=== PATIENT | female | born 1985 ===

== ENCOUNTER 2021-02-25 13:43 | Inpatient (IN) | payer BC ==
[2021-02-25] MEDS ORDERED: Oxytocin/0.9 % Sodium Chloride 30 UNIT/500 ML BAG IV SCH ×2 (14:02→14:15)
[2021-02-25] MEDS ORDERED: Carboprost Tromethamine 250 MCG/1 ML Amp IM PRN ×2 (14:02)
[2021-02-25] MEDS ORDERED: Sodium Chloride 0.9% 2.5 ML Syringe FLUSH PRN (14:02)
[2021-02-25] MEDS ORDERED: Butorphanol 1 MG/ML SDV IVPUSH PRN ×2 (14:02)
[2021-02-25] MEDS ORDERED: Misoprostol 200 MCG Tab PO PRN ×2 (14:02)
[2021-02-25] MEDS ORDERED: Sodium Chloride 0.9% 20 ML SDV IV PRN (14:02)
[2021-02-25] MEDS ORDERED: Tranexamic Acid 1,000 MG in Sodium Chloride 0.9% 100 ML IV PRN ×2 (14:02)
[2021-02-25] MEDS ORDERED: Sodium Chloride 0.9% 10 ML Syringe FLUSH PRN (14:02)
[2021-02-25] MEDS ORDERED: Water For Irrigation,Sterile 1,000 ML Container IRR PRN ×2 (14:02)
[2021-02-25] MEDS ORDERED: Ampicillin 2 GM in Sodium Chloride 0.9% 100 ML IV ONE ×3 (14:02→14:30)
[2021-02-25] MEDS ORDERED: Nalbuphine 10 MG/1 ML Vial IVPUSH PRN ×2 (14:02)
[2021-02-25] MEDS ORDERED: Methylergonovine 0.2 MG/1 ML Amp IM PRN ×2 (14:02)
[2021-02-25] MEDS ORDERED: Lactated Ringers 1,000 ML IV SCH ×2 (14:02→14:15)
[2021-02-25] MEDS ORDERED: Lidocaine 1% 50 ML MDV INJECT PRN ×2 (14:02)
[2021-02-25] MEDS ORDERED: Ampicillin 2 GM Vial ONE (14:17)
[2021-02-25] MEDS ORDERED: Sodium Chloride 0.9% 100 ML ONE (14:23)
--- NOTE | 2021-02-25 14:51 | PCM.LDHP ---
L&D History of Present Illness - General Date of Service: 02/25/21 Admit Problem/Dx: Patient Status Order with Admit Dx/Problem 02/25/21 14:02 Patient Status [ADT] Routine Admission Diagnosis/Problem Admission Diagnosis/Problem Source of Information: Patient History Limitations: Reports: No Limitations - History of Present Illness Introduction:: 35 year old female at 38w0d (EDC 03/11/2021 by LMP c/w 1st trimester US) presents to labor and delivery with spontaneous rupture of membranes at approximately 1315 with clear fluid noted. has been uncomplicated. Reports good movement. Denies vaginal bleeding. - Related Data Allergies/Adverse Reactions: Allergies Allergy/AdvReac Type Severity Reaction Status Date / Time No Known Allergies Allergy Verified 02/25/21 06:06 Home Medications: Home Meds Pnv No.95/Ferrous Fum/Folic AC [ Tablet] 1 tab PO DAILY 02/25/21 [History] H&P Review of Systems - Review of Systems: Review Of Systems: See Below General: Reports: No Symptoms HEENT: Reports: No Symptoms Pulmonary: Reports: No Symptoms Cardiovascular: Reports: No Symptoms Gastrointestinal: Reports: Abdominal Pain Genitourinary: Reports: No Symptoms Musculoskeletal: Reports: Back Pain Skin: Reports: No Symptoms Psychiatric: Reports: No Symptoms Neurological: Reports: No Symptoms Hematologic/Lymphatic: Reports: No Symptoms L&D Exam - Exam Exam: See Below - Vital Signs Weight: 179 lb - OB Specific Contraction Frequency (min): 2-3 Contraction Intensity: Moderate Movement: Active Heart Tones: Present Heart Tones per Min: 130 Heart Rate (FHR) Variability: Moderate (6-25 bpm) Presentation: Vertex Estimated Weight: 3500 - Wick Score Wick Score Cervix Position: Anterior Wick Score Consistency: Soft Wick Score Effacement: >80% Wick Score Dilation: > 5 cm Wick Score 's Station: +1, +2 Wick Score Total: 13 - Exam General: Alert Lungs: Normal Respiratory Effort Cardiovascular: Regular Rate GI/Abdominal Exam: Soft, Non-Tender Extremities: Normal Inspection Skin: Warm, Dry, Intact Psychiatric: Normal Mood - Patient Data Result Diagrams: 02/25/21 14:00 Problem List Initiated/Reviewed/Updated: Yes Orders Last 24hrs: Active Orders 24 hr Category Date Time Status Patient Status [ADT] Routine ADT 02/25/21 14:02 Active Heart Tones [RC] CONTINUOUS Care 02/25/21 14:02 Active Non Stress Test [RC] PER UNIT ROUTINE Care 02/25/21 14:02 Active May Shower [RC] ASDIRECTED Care 02/25/21 14:02 Active Notify Provider [RC] PRN Care 02/25/21 14:02 Active Up ad Shanice [RC] ASDIRECTED Care 02/25/21 14:02 Active Vaginal Exam [RC] PRN Care 02/25/21 14:02 Active Vital Signs [RC] PER UNIT ROUTINE Care 02/25/21 14:02 Active CBC W/O DIFF,HEMOGRAM [HEME] Routine Lab 02/25/21 14:00 Ordered CORONAVIRUS COVID-19 JOSE [MOLEC] Routine Lab 02/25/21 14:30 Ordered RPR (SYPHILIS SERO) W/ RFLX [REF] Routine Lab 02/25/21 14:00 Ordered TYPE AND SCREEN [BBK] Routine Lab 02/25/21 14:00 Ordered Ampicillin 2 gm Med 02/25/21 14:30 Active Sodium Chloride 0.9% [Normal Saline AdvBag] 100 ml IV ONETIME Butorphanol [Stadol] Med 02/25/21 14:02 Active 1 mg IVPUSH Q1H PRN Carboprost Tromethamine [Hemabate DS] Med 02/25/21 14:02 Active 250 mcg IM ASDIRECTED PRN Lactated Ringers [Ringers, Lactated] 1,000 ml Med 02/25/21 14:15 Active IV ASDIRECTED Lidocaine 1% [Xylocaine 1%] Med 02/25/21 14:02 Active 50 ml INJECT ONETIME PRN Methylergonovine [Methergine] Med 02/25/21 14:02 Active 0.2 mg IM ASDIRECTED PRN Nalbuphine [Nubain] Med 02/25/21 14:02 Active 10 mg IVPUSH Q1H PRN Oxytocin/0.9 % Sodium Chloride [Oxytocin 30 Unit in NS Med 02/25/21 14:15 Active 0.9% 500 ML Premix] 30 unit in 500 ml IV TITRATE Sodium Chloride 0.9% [Normal Saline] Med 02/25/21 14:02 Active 10 ml IV ASDIRECTED PRN Sodium Chloride 0.9% [Saline Flush] Med 02/25/21 14:02 Active 10 ml FLUSH ASDIRECTED PRN Sodium Chloride 0.9% [Saline Flush] Med 02/25/21 14:02 Active 2.5 ml FLUSH ASDIRECTED PRN Tranexamic Acid [Cyklokapron] 1,000 mg Med 02/25/21 14:02 Active Sodium Chloride 0.9% [Normal Saline AdvBag] 100 ml IV ONETIME Water For Irrigation,Sterile [Sterile Water for Med 02/25/21 14:02 Active Irrigation] 1,000 ml IRR ASDIRECTED PRN miSOPROStoL [Cytotec] Med 02/25/21 14:02 Active 200 mcg PO ONETIME PRN Scalp Electrode [WOMSER] Per Unit Routine Oth 02/25/21 14:02 Ordered Peripheral IV Insertion Adult [OM.PC] Routine Oth 02/25/21 14:02 Ordered Resuscitation Status Routine Resus Stat 02/25/21 14:02 Ordered Medication Orders Butorphanol Tartrate (Butorphanol 1 Mg/Ml Sdv) 1 mg IVPUSH Q1H PRN PRN Reason: Pain (severe 7-10) Carboprost Tromethamine (Carboprost Tromethamine 250 Mcg/1 Ml Amp) 250 mcg IM ASDIRECTED PRN PRN Reason: Post Hemorrhage Oxytocin/Sodium Chloride (Oxytocin 30 Unit In Ns 0.9% 500 Ml Premix) 30 unit in 500 mls @ 500 mls/hr IV TITRATE PAO Tranexamic Acid 1,000 mg/ (Sodium Chloride) 110 mls @ 660 mls/hr IV ONETIME PRN PRN Reason: Bleeding Ampicillin Sodium 2 gm/ Sodium (Chloride) 100 mls @ 200 mls/hr IV ONETIME ONE Stop: 02/25/21 14:59 Lactated Ringer's (Ringers, Lactated) 1,000 mls @ 150 mls/hr IV ASDIRECTED PAO Lidocaine HCl (Lidocaine 1% 50 Ml Mdv) 50 ml INJECT ONETIME PRN PRN Reason: Laceration repair Methylergonovine Maleate (Methylergonovine 0.2 Mg/1 Ml Amp) 0.2 mg IM ASDIRECTED PRN PRN Reason: Post Hemorrhage Misoprostol (Misoprostol 200 Mcg Tab) 200 mcg PO ONETIME PRN PRN Reason: Post Hemorrhage Nalbuphine HCl (Nalbuphine 10 Mg/1 Ml Vial) 10 mg IVPUSH Q1H PRN PRN Reason: Pain (severe 7-10) Sodium Chloride (Sodium Chloride 0.9% 10 Ml Syringe) 10 ml FLUSH ASDIRECTED PRN PRN Reason: Keep Vein Open Sodium Chloride (Sodium Chloride 0.9% 2.5 Ml Syringe) 2.5 ml FLUSH ASDIRECTED PRN PRN Reason: Keep Vein Open Sodium Chloride (Sodium Chloride 0.9% 20 Ml Sdv) 10 ml IV ASDIRECTED PRN PRN Reason: IV Use Sterile Water (Water For Irrigation,Sterile 1,000 Ml Container) 1,000 ml IRR ASDIRECTED PRN PRN Reason: delivery Assessment/Plan Comment:: 35 year old female at 38w0d (EDC 03/11/2021 by LMP c/w 1st trimester US) with spontaneous rupture of membranes * Admit to labor and delivery * Rh positive, rubella immune * GBS positive, IV ampicillin for prophylaxis * Epidural PRN pain management Dispo: stable. Proceed with expectant management of labor.
[2021-02-25] MEDS ORDERED: ePHEDrine 50 MG/ML SDV IVPUSH PRN ×2 (15:45)
[2021-02-25] MEDS ORDERED: Ropivacaine 0.2% 2MG/ML 200 ML Bag EPIDUR SCH (15:45)
[2021-02-25] MEDS ORDERED: Morphine 2 MG/ML SYRINGE ONE (17:02)
[2021-02-25] MEDS ORDERED: Morphine 2 MG/ML SYRINGE IVPUSH ONE (17:02)
[2021-02-25] MEDS ORDERED: Acetaminophen 500 MG Tab PO PRN ×2 (17:13)
[2021-02-25] MEDS ORDERED: Bisacodyl 10 MG Supp RECTAL PRN (17:13)
[2021-02-25] MEDS ORDERED: oxyCODONE 5 MG Tab PO PRN (17:13)
[2021-02-25] MEDS ORDERED: Benzocaine/Menthol 20%-0.5% Spray 78 GM Cannister TOP PRN (17:13)
[2021-02-25] MEDS ORDERED: Ibuprofen 400 MG Tab PO PRN (17:13)
[2021-02-25] MEDS ORDERED: Witch Hazel Medicated Pads 40/Jar TOP PRN (17:13)
[2021-02-25] MEDS ORDERED: Docusate Sodium 100 MG Cap PO PRN (17:13)
[2021-02-25] MEDS ORDERED: Lanolin 100% Cream 7 GM Tube TOP PRN (17:13)
--- NOTE | 2021-02-25 17:20 | PCM.DEL ---
L & D Note - General Info Date of Service: 02/25/21 Mother's Due Date: 03/11/21 - Delivery Note Labor: Spontaneous Delivery Outcome: Livebirth Infant Delivery Method: Spontaneous Vaginal Delivery-Single Delivery Mode: Spontaneous Presentation: Vertex Nuchal Cord: None Anesthesia Type: None Amniotic Fluid Description: Clear Episiotomy Type: None Laceration: None Placenta: Intact, Spontaneous Cord: 3 Vessels Estimated Blood Loss: 150 Resuscitation Needed: No [place]: Bulb Syringe, Stimulated Provider: Sugey Dolan Score 1 min: 8 Score 5 min: 9 Delivery Comments (Free Text/Narrative):: Dictation #[id number] - General Info Date of Service: 02/25/21 Admission Dx/Problem (Free Text): Patient Status Order with Admit Dx/Problem 02/25/21 14:02 Patient Status [ADT] Routine Admission Diagnosis/Problem Admission Diagnosis/Problem - Patient Data Weight - Most Recent: 179 lb Lab Results Last 24 Hours: Laboratory Results - last 24 hr 02/25/21 02/25/21 02/25/21 Range/Units 14:00 14:00 14:30 WBC 9.19 (4.0-11.0) K/uL RBC 4.55 (4.30-5.90) M/uL Hgb 13.0 (12.0-16.0) g/dL Hct 37.4 (36.0-46.0) % MCV 82.2 (80.0-98.0) fL MCH 28.6 (27.0-32.0) pg MCHC 34.8 (31.0-37.0) g/dL RDW Std Deviation 39.7 (28.0-62.0) fl RDW Coeff of Freddy 13 (11.0-15.0) % Plt Count 238 (150-400) K/uL MPV 9.20 (7.40-12.00) fL Nucleated RBC % 0.0 /100WBC Nucleated RBCs # 0 K/uL SARS-CoV-2 RNA (JOSE) NEGATIVE (NEGATIVE) Blood Type O POSITIVE Antibody Screen NEGATIVE Med Orders - Current: Current Medications Butorphanol Tartrate (Butorphanol 1 Mg/Ml Sdv) 1 mg IVPUSH Q1H PRN PRN Reason: Pain (severe 7-10) Carboprost Tromethamine (Carboprost Tromethamine 250 Mcg/1 Ml Amp) 250 mcg IM ASDIRECTED PRN PRN Reason: Post Hemorrhage Ephedrine Sulfate (Ephedrine 50 Mg/Ml Sdv) 10 mg IVPUSH Q5M PRN PRN Reason: Hypotension Ephedrine Sulfate (Ephedrine 50 Mg/Ml Sdv) 10 mg IVPUSH Q1M PRN PRN Reason: Hypotension Ampicillin Sodium 1 gm/ Sodium (Chloride) 50 mls @ 100 mls/hr IV Q4H PAO Lactated Ringer's (Ringers, Lactated) 1,000 mls @ 150 mls/hr IV ASDIRECTED PAO Oxytocin/Sodium Chloride (Oxytocin 30 Unit In Ns 0.9% 500 Ml Premix) 30 unit in 500 mls @ 999 mls/hr IV TITRATE PAO Tranexamic Acid 1,000 mg/ (Sodium Chloride) 110 mls @ 660 mls/hr IV ONETIME PRN PRN Reason: Bleeding Lidocaine HCl (Lidocaine 1% 50 Ml Mdv) 50 ml INJECT ONETIME PRN PRN Reason: Laceration repair Methylergonovine Maleate (Methylergonovine 0.2 Mg/1 Ml Amp) 0.2 mg IM ASDIRECTED PRN PRN Reason: Post Hemorrhage Miscellaneous Medication (Phenylephrine Hcl In 0.9% Nacl 1 Mg/10 Ml Syringe) 0.1 mg IVPUSH Q1M PRN PRN Reason: Hypotension Misoprostol (Misoprostol 200 Mcg Tab) 200 mcg PO ONETIME PRN PRN Reason: Post Hemorrhage Nalbuphine HCl (Nalbuphine 10 Mg/1 Ml Vial) 10 mg IVPUSH Q1H PRN PRN Reason: Pain (severe 7-10) Ropivacaine (Ropivacaine 0.2% 2mg/Ml 200 Ml Bag) 400 mg EPIDUR ASDIRECTED PAO Sterile Water (Water For Irrigation,Sterile 1,000 Ml Container) 1,000 ml IRR ASDIRECTED PRN PRN Reason: delivery Discontinued Medications Ampicillin Sodium (Ampicillin 2 Gm Vial) Confirm Administered Dose 2 gm .ROUTE .STK-MED ONE Stop: 02/25/21 14:18 Sodium Chloride (Normal Saline Advbag) Confirm Administered Dose 100 mls @ as directed .ROUTE .STK-MED ONE Stop: 02/25/21 14:24 Ampicillin Sodium 2 gm/ Sodium (Chloride) 100 mls @ 200 mls/hr IV ONETIME ONE Stop: 02/25/21 14:55 Morphine Sulfate (Morphine 2 Mg/Ml Syringe) Confirm Administered Dose 2 mg .ROUTE .STK-MED ONE Stop: 02/25/21 17:03 Nalbuphine HCl (Nalbuphine 10 Mg/1 Ml Vial) 10 mg IVPUSH Q1H PRN PRN Reason: Pain (severe 7-10) Last Admin: 02/25/21 15:52 Dose: 10 mg Documented by: - Problem List Review Problem List Initiated/Reviewed/Updated: Yes - My Orders Last 24 Hours: My Active Orders 02/25/21 14:00 RPR (SYPHILIS SERO) W/ RFLX [REF] Routine 02/25/21 14:02 Patient Status [ADT] Routine Heart Tones [RC] CONTINUOUS Non Stress Test [RC] PER UNIT ROUTINE May Shower [RC] ASDIRECTED Notify Provider [RC] PRN Up ad Shanice [RC] ASDIRECTED Vaginal Exam [RC] PRN Vital Signs [RC] PER UNIT ROUTINE CBC W/O DIFF,HEMOGRAM [HEME] Routine CORONAVIRUS COVID-19 JOSE [MOLEC] Urgent RPR (SYPHILIS SERO) W/ RFLX [REF] Routine Butorphanol [Stadol] 1 mg IVPUSH Q1H PRN Carboprost Tromethamine [Hemabate DS] 250 mcg IM ASDIRECTED PRN Lactated Ringers [Ringers, Lactated] 1,000 ml IV ASDIRECTED Lidocaine 1% [Xylocaine 1%] 50 ml INJECT ONETIME PRN Methylergonovine [Methergine] 0.2 mg IM ASDIRECTED PRN Nalbuphine [Nubain] 10 mg IVPUSH Q1H PRN Oxytocin/0.9 % Sodium Chloride [Oxytocin 30 Unit in NS 0.9% 500 ML Premix] 30 unit in 500 ml IV TITRATE Tranexamic Acid [Cyklokapron] 1,000 mg Sodium Chloride 0.9% [Normal Saline] 100 ml IV ONETIME Water For Irrigation,Sterile [Sterile Water for Irrigation] 1,000 ml IRR ASDIRECTED PRN miSOPROStoL [Cytotec] 200 mcg PO ONETIME PRN Scalp Electrode [WOMSER] Per Unit Routine Peripheral IV Insertion Adult [OM.PC] Routine 02/25/21 16:21 Resuscitation Status Routine 02/25/21 17:13 Patient Status [ADT] Routine May Shower [RC] ASDIRECTED Up ad Shanice [RC] ASDIRECTED Vital Signs [RC] PER UNIT ROUTINE Acetaminophen [Tylenol Extra Strength] 1,000 mg PO Q4H PRN Acetaminophen [Tylenol Extra Strength] 500 mg PO Q4H PRN Benzocaine/Menthol [Dermoplast Pain Relief 20%-0.5% [place]] 78 gm TOP ASDIRECTED PRN Docusate Sodium [Colace] 100 mg PO Q12H PRN Ibuprofen [Motrin] 400 mg PO Q4H PRN Ibuprofen [Motrin] 800 mg PO Q6H PRN Lanolin [Lansinoh HPA] See Dose Instructions TOP ASDIRECTED PRN bisacodyL [Dulcolax] 10 mg RECTAL ONETIME PRN oxyCODONE 5 mg PO Q2H PRN witch Ramy [Tucks] 1 pad TOP ASDIRECTED PRN Assess Lochia [WOMSER] Per Unit Routine Assess Uterine Involution [WOMSER] Per Unit Routine Peripheral IV Discontinue [OM.PC] Routine 02/25/21 20:30 Ampicillin 1 gm Sodium Chloride 0.9% [Normal Saline AdvBag] 50 ml IV Q4H 02/26/21 05:11 HEMOGLOBIN/HEMATOCRIT,HH [HEME] Timed 02/26/21 Breakfast Regular Diet [DIET] - Assessment Assessment:: 35 year old female s/p at 38w0d - Plan Plan:: Routine cares * Rh positive, rubella immune * GBS positive, received 1 dose IV ampicillin prior to delivery * PO pain medication PRN * Regular diet as tolerated * Encourage ambulation and fluid intake when able * , nursing assistance as needed Dispo: stable. Admit to floor. Anticipate routine course.
[2021-02-25] MEDS ORDERED: Ampicillin 1 GM in Sodium Chloride 0.9% 50 ML IV SCH (20:30)
--- NOTE | 2021-02-25 23:17 | OR ---
SURGEON: CHUCKY NESBITT MD DATE OF PROCEDURE: 02/25/2021 PREOPERATIVE DIAGNOSES: 1. Wahl intrauterine gestation at 38 weeks and 0 days. 2. Group B streptococcus positive. POSTOPERATIVE DIAGNOSES: 1. Wahl intrauterine gestation at 38 weeks and 0 days. 2. Group B streptococcus positive. PROCEDURE PERFORMED: Normal spontaneous vaginal delivery. PRIMARY SURGEON: Chucky Nesbitt MD ANESTHESIA: None. COMPLICATIONS: None known. ESTIMATED BLOOD LOSS: 150 mL. FINDINGS: Viable normal-appearing female in cephalic presentation. scores of 8 and 9. weight not yet available at this time. Clear amniotic fluid. Intact perineum. INDICATION FOR THE PROCEDURE: Patient is a 35-year-old 6, para 3-0-2-3, who presented to Labor and Delivery on the afternoon of 02/25/2021 at 38 weeks and 0 days' gestation with spontaneous rupture of membranes which occurred at approximately 1315. Clear fluid was noted. The patient noted to be approximately 4 to 5 cm, 80% effaced, and -1 station at that time. She was then admitted and IV ampicillin was initiated due to group B strep positive status. Labor quickly progressed throughout the afternoon and at approximately 1630, I was notified the patient was 6 cm dilated, 90% effaced, and +1 station and becoming more uncomfortable. She remained unmedicated at that time, and I was requested to come for evaluation. Upon my arrival to the patient's room at approximately 1655, the patient noted to be completely dilated and at +2 station. DESCRIPTION OF THE PROCEDURE: The patient was then placed into the dorsal lithotomy and pushed with contractions. She did push over two contractions with good descent. head delivered occiput anterior position, restituted ROT. Anterior shoulder was delivered easily. No nuchal cord was noted. Posterior shoulder and remaining body were then delivered. The baby was then placed on the maternal abdomen and evaluated by the awaiting nursing staff. The baby was pink, crying vigorously, and moving all extremities immediately after the delivery. The umbilical cord was clamped and cut after approximately 2 minutes and no longer pulsating. Venous and cord blood gases were then obtained. Arterial blood gas was unable to be obtained at that time. The placenta then delivered intact and fundal massage was then performed with fundus firm and 2 fingerbreadths below the umbilicus. Bleeding minimal. Perineal inspection was then performed and the perineum noted to be intact. The patient tolerated the procedure well and is recovering in labor room with infant. AUSTIN ZAMBRANO /[id number]
[2021-02-26] MEDS: Ibuprofen 800 MG Tab PO PRN ×2 (05:58→21:22)
--- NOTE | 2021-02-26 08:57 | PCM.PNPP ---
- General Info Date of Service: 02/26/21 Functional Status: Reports: Pain Controlled, Tolerating Diet, Ambulating, Urinating - Review of Systems General: Reports: Fatigue. Denies: Fever, Weakness Pulmonary: Reports: Wheezing. Denies: Shortness of Breath Cardiovascular: Denies: Chest Pain, Palpitations, Lightheadedness Gastrointestinal: Denies: Abdominal Pain, Nausea, Vomiting Genitourinary: Denies: Flank Pain Musculoskeletal: Reports: No Symptoms Skin: Reports: No Symptoms Neurological: Reports: No Symptoms Psychiatric: Reports: No Symptoms - General Info Date of Service: 02/26/21 - Patient Data Vital Signs - Most Recent: Last Vital Signs Temp 36.4 C 02/26/21 07:30 Pulse 72 02/26/21 07:30 Resp 16 02/26/21 07:30 BP 97/65 02/26/21 07:30 Pulse Ox 96 02/26/21 07:30 Weight - Most Recent: 81.193 kg Lab Results - Last 24 Hours: Laboratory Results - last 24 hr 02/25/21 02/25/21 02/25/21 Range/Units 14:00 14:00 14:30 WBC 9.19 (4.0-11.0) K/uL RBC 4.55 (4.30-5.90) M/uL Hgb 13.0 (12.0-16.0) g/dL Hct 37.4 (36.0-46.0) % MCV 82.2 (80.0-98.0) fL MCH 28.6 (27.0-32.0) pg MCHC 34.8 (31.0-37.0) g/dL RDW Std Deviation 39.7 (28.0-62.0) fl RDW Coeff of Freddy 13 (11.0-15.0) % Plt Count 238 (150-400) K/uL MPV 9.20 (7.40-12.00) fL Nucleated RBC % 0.0 /100WBC Nucleated RBCs # 0 K/uL Cord VBG pH (7.25-7.45) Cord VBG Base Excess (-10--2) SARS-CoV-2 RNA (JOSE) NEGATIVE (NEGATIVE) Blood Type O POSITIVE Antibody Screen NEGATIVE 02/25/21 02/26/21 Range/Units 16:59 05:25 WBC (4.0-11.0) K/uL RBC (4.30-5.90) M/uL Hgb 11.1 L (12.0-16.0) g/dL Hct 32.3 L (36.0-46.0) % MCV (80.0-98.0) fL MCH (27.0-32.0) pg MCHC (31.0-37.0) g/dL RDW Std Deviation (28.0-62.0) fl RDW Coeff of Freddy (11.0-15.0) % Plt Count (150-400) K/uL MPV (7.40-12.00) fL Nucleated RBC % /100WBC Nucleated RBCs # K/uL Cord VBG pH 7.404 (7.25-7.45) Cord VBG Base Excess -5 (-10--2) SARS-CoV-2 RNA (JOSE) (NEGATIVE) Blood Type Antibody Screen Med Orders - Current: Current Medications Acetaminophen (Acetaminophen 500 Mg Tab) 500 mg PO Q4H PRN PRN Reason: Pain (mild 1-3) Acetaminophen (Acetaminophen 500 Mg Tab) 1,000 mg PO Q4H PRN PRN Reason: Pain (mild 1-3) Benzocaine/Menthol (Benzocaine/Menthol 20%-0.5% [place] 78 Gm Cannister) 78 gm TOP ASDIRECTED PRN PRN Reason: Perineal Comfort Measure Last Admin: 02/26/21 06:20 Dose: 1 canister Documented by: Bisacodyl (Bisacodyl 10 Mg Supp) 10 mg RECTAL ONETIME PRN PRN Reason: Constipation Butorphanol Tartrate (Butorphanol 1 Mg/Ml Sdv) 1 mg IVPUSH Q1H PRN PRN Reason: Pain (severe 7-10) Carboprost Tromethamine (Carboprost Tromethamine 250 Mcg/1 Ml Amp) 250 mcg IM ASDIRECTED PRN PRN Reason: Post Hemorrhage Docusate Sodium (Docusate Sodium 100 Mg Cap) 100 mg PO Q12H PRN PRN Reason: Constipation Emollient Ointment (Lanolin 100% Cream 7 Gm Tube) 0 gm TOP ASDIRECTED PRN PRN Reason: Sore Nipples Last Admin: 02/26/21 06:18 Dose: 1 tube Documented by: Ephedrine Sulfate (Ephedrine 50 Mg/Ml Sdv) 10 mg IVPUSH Q5M PRN PRN Reason: Hypotension Ephedrine Sulfate (Ephedrine 50 Mg/Ml Sdv) 10 mg IVPUSH Q1M PRN PRN Reason: Hypotension Ampicillin Sodium 1 gm/ Sodium (Chloride) 50 mls @ 100 mls/hr IV Q4H [facility] Lactated Ringer's (Ringers, Lactated) 1,000 mls @ 150 mls/hr IV ASDIRECTED [facility] Last Admin: 02/25/21 14:10 Dose: 150 mls/hr Documented by: Oxytocin/Sodium Chloride (Oxytocin 30 Unit In Ns 0.9% 500 Ml Premix) 30 unit in 500 mls @ 999 mls/hr IV TITRATE [facility] Last Admin: 02/25/21 17:00 Dose: 500 mls/hr Documented by: Tranexamic Acid 1,000 mg/ (Sodium Chloride) 110 mls @ 660 mls/hr IV ONETIME PRN PRN Reason: Bleeding Ibuprofen (Ibuprofen 400 Mg Tab) 400 mg PO Q4H PRN PRN Reason: Pain (mild 1-3) Ibuprofen (Ibuprofen 800 Mg Tab) 800 mg PO Q6H PRN PRN Reason: Cramping Last Admin: 02/26/21 05:58 Dose: 800 mg Documented by: Lidocaine HCl (Lidocaine 1% 50 Ml Mdv) 50 ml INJECT ONETIME PRN PRN Reason: Laceration repair Methylergonovine Maleate (Methylergonovine 0.2 Mg/1 Ml Amp) 0.2 mg IM ASDIRECTED PRN PRN Reason: Post Hemorrhage Miscellaneous Medication (Phenylephrine Hcl In 0.9% Nacl 1 Mg/10 Ml Syringe) 0.1 mg IVPUSH Q1M PRN PRN Reason: Hypotension Misoprostol (Misoprostol 200 Mcg Tab) 200 mcg PO ONETIME PRN PRN Reason: Post Hemorrhage Nalbuphine HCl (Nalbuphine 10 Mg/1 Ml Vial) 10 mg IVPUSH Q1H PRN PRN Reason: Pain (severe 7-10) Oxycodone HCl (Oxycodone 5 Mg Tab) 5 mg PO Q2H PRN PRN Reason: Pain (severe 7-10) Ropivacaine (Ropivacaine 0.2% 2mg/Ml 200 Ml Bag) 400 mg EPIDUR ASDIRECTED [facility] Sterile Water (Water For Irrigation,Sterile 1,000 Ml Container) 1,000 ml IRR ASDIRECTED PRN PRN Reason: delivery Witch Nancy (Witch Nancy Medicated Pads 40/Jar) 1 pad TOP ASDIRECTED PRN PRN Reason: comfort care Last Admin: 02/26/21 06:19 Dose: 1 tub Documented by: Discontinued Medications Ampicillin Sodium (Ampicillin 2 Gm Vial) Confirm Administered Dose 2 gm .ROUTE .STK-MED ONE Stop: 02/25/21 14:18 Last Admin: 02/26/21 07:22 Dose: Not Given Documented by: Sodium Chloride (Normal Saline Advbag) Confirm Administered Dose 100 mls @ as directed .ROUTE .STK-MED ONE Stop: 02/25/21 14:24 Last Admin: 02/26/21 07:22 Dose: Not Given Documented by: Ampicillin Sodium 2 gm/ Sodium (Chloride) 100 mls @ 200 mls/hr IV ONETIME ONE Stop: 02/25/21 14:55 Last Admin: 02/25/21 14:26 Dose: 200 mls/hr Documented by: Morphine Sulfate (Morphine 2 Mg/Ml Syringe) Confirm Administered Dose 2 mg .ROUTE .STK-MED ONE Stop: 02/25/21 17:03 Last Admin: 02/26/21 07:21 Dose: Not Given Documented by: Morphine Sulfate (Morphine 2 Mg/Ml Syringe) 2 mg IVPUSH ONETIME ONE Stop: 02/25/21 17:03 Last Admin: 02/25/21 17:03 Dose: 2 mg Documented by: Nalbuphine HCl (Nalbuphine 10 Mg/1 Ml Vial) 10 mg IVPUSH Q1H PRN PRN Reason: Pain (severe 7-10) Last Admin: 02/25/21 15:52 Dose: 10 mg Documented by: - Infant Interaction Support Person: Significant Other - Recovery Exam Fundal Tone: Firm Fundal Level: At Umbilicus Fundal Placement: Midline Lochia Amount: Scant Lochia Color: Rubra/Red Perineum Description: Intact, Minimal Bruising/Swelling Episiotomy/Laceration: None Bladder Status: Voiding Urinary Elimination: Voided - Exam General: Alert, Oriented Lungs: Normal Respiratory Effort Cardiovascular: Regular Rate, Regular Rhythm GI/Abdominal Exam: Normal Bowel Sounds, Soft Extremities: Pedal Edema (trace). No: Miri's Sign Skin: Warm, Dry, Intact Neurological: No New Focal Deficit Psy/Mental Status: Alert, Normal Affect, Normal Mood - Problem List & Annotations (1) Vaginal delivery SNOMED Code(s): 209295625 Code(s): O80 - ENCOUNTER FOR FULL-TERM UNCOMPLICATED DELIVERY Status: Acute Current Visit: Yes - Problem List Review Problem List Initiated/Reviewed/Updated: Yes - Assessment Assessment:: PPD1 s/p at 38w0d - Plan Plan:: Routine cares * Rh positive, rubella immune * GBS positive, received 1 dose IV ampicillin prior to delivery * PO pain medication PRN * Regular diet as tolerated * Encourage ambulation and fluid intake when able * , nursing assistance as needed Dispo: stable. Continue cares.
--- NOTE | 2021-02-27 08:58 | PCM.PNPP ---
- General Info Date of Service: 03/06/21 Functional Status: Reports: Pain Controlled, Tolerating Diet, Ambulating, Urinating - Review of Systems General: Denies: Fever, Weakness, Fatigue Pulmonary: Denies: Shortness of Breath Cardiovascular: Reports: No Symptoms Gastrointestinal: Reports: No Symptoms Genitourinary: Reports: No Symptoms Musculoskeletal: Reports: No Symptoms Skin: Reports: No Symptoms Neurological: Reports: No Symptoms Psychiatric: Reports: No Symptoms - Patient Data Vital Signs - Most Recent: Last Vital Signs Temp 36.6 C 02/27/21 08:00 Pulse 73 02/27/21 08:00 Resp 18 02/27/21 08:00 BP 112/68 02/27/21 08:00 Pulse Ox 94 L 02/27/21 08:00 Weight - Most Recent: 81.193 kg Med Orders - Current: Current Medications Acetaminophen (Acetaminophen 500 Mg Tab) 500 mg PO Q4H PRN PRN Reason: Pain (mild 1-3) Acetaminophen (Acetaminophen 500 Mg Tab) 1,000 mg PO Q4H PRN PRN Reason: Pain (mild 1-3) Last Admin: 02/26/21 14:55 Dose: 1,000 mg Documented by: Benzocaine/Menthol (Benzocaine/Menthol 20%-0.5% [place] 78 Gm Cannister) 78 gm TOP ASDIRECTED PRN PRN Reason: Perineal Comfort Measure Last Admin: 02/26/21 06:20 Dose: 1 canister Documented by: Bisacodyl (Bisacodyl 10 Mg Supp) 10 mg RECTAL ONETIME PRN PRN Reason: Constipation Butorphanol Tartrate (Butorphanol 1 Mg/Ml Sdv) 1 mg IVPUSH Q1H PRN PRN Reason: Pain (severe 7-10) Carboprost Tromethamine (Carboprost Tromethamine 250 Mcg/1 Ml Amp) 250 mcg IM ASDIRECTED PRN PRN Reason: Post Hemorrhage Docusate Sodium (Docusate Sodium 100 Mg Cap) 100 mg PO Q12H PRN PRN Reason: Constipation Emollient Ointment (Lanolin 100% Cream 7 Gm Tube) 0 gm TOP ASDIRECTED PRN PRN Reason: Sore Nipples Last Admin: 02/26/21 06:18 Dose: 1 tube Documented by: Ephedrine Sulfate (Ephedrine 50 Mg/Ml Sdv) 10 mg IVPUSH Q5M PRN PRN Reason: Hypotension Ephedrine Sulfate (Ephedrine 50 Mg/Ml Sdv) 10 mg IVPUSH Q1M PRN PRN Reason: Hypotension Ampicillin Sodium 1 gm/ Sodium (Chloride) 50 mls @ 100 mls/hr IV Q4H [facility] Lactated Ringer's (Ringers, Lactated) 1,000 mls @ 150 mls/hr IV ASDIRECTED [facility] Last Admin: 02/25/21 14:10 Dose: 150 mls/hr Documented by: Oxytocin/Sodium Chloride (Oxytocin 30 Unit In Ns 0.9% 500 Ml Premix) 30 unit in 500 mls @ 999 mls/hr IV TITRATE [facility] Last Admin: 02/25/21 17:00 Dose: 500 mls/hr Documented by: Tranexamic Acid 1,000 mg/ (Sodium Chloride) 110 mls @ 660 mls/hr IV ONETIME PRN PRN Reason: Bleeding Ibuprofen (Ibuprofen 400 Mg Tab) 400 mg PO Q4H PRN PRN Reason: Pain (mild 1-3) Ibuprofen (Ibuprofen 800 Mg Tab) 800 mg PO Q6H PRN PRN Reason: Cramping Last Admin: 02/26/21 21:22 Dose: 800 mg Documented by: Lidocaine HCl (Lidocaine 1% 50 Ml Mdv) 50 ml INJECT ONETIME PRN PRN Reason: Laceration repair Methylergonovine Maleate (Methylergonovine 0.2 Mg/1 Ml Amp) 0.2 mg IM ASDIRECTED PRN PRN Reason: Post Hemorrhage Miscellaneous Medication (Phenylephrine Hcl In 0.9% Nacl 1 Mg/10 Ml Syringe) 0.1 mg IVPUSH Q1M PRN PRN Reason: Hypotension Misoprostol (Misoprostol 200 Mcg Tab) 200 mcg PO ONETIME PRN PRN Reason: Post Hemorrhage Nalbuphine HCl (Nalbuphine 10 Mg/1 Ml Vial) 10 mg IVPUSH Q1H PRN PRN Reason: Pain (severe 7-10) Oxycodone HCl (Oxycodone 5 Mg Tab) 5 mg PO Q2H PRN PRN Reason: Pain (severe 7-10) Ropivacaine (Ropivacaine 0.2% 2mg/Ml 200 Ml Bag) 400 mg EPIDUR ASDIRECTED [facility] Sterile Water (Water For Irrigation,Sterile 1,000 Ml Container) 1,000 ml IRR ASDIRECTED PRN PRN Reason: delivery Witch Nancy (Witch Nancy Medicated Pads 40/Jar) 1 pad TOP ASDIRECTED PRN PRN Reason: comfort care Last Admin: 02/26/21 06:19 Dose: 1 tub Documented by: Discontinued Medications Ampicillin Sodium (Ampicillin 2 Gm Vial) Confirm Administered Dose 2 gm .ROUTE .STK-MED ONE Stop: 02/25/21 14:18 Last Admin: 02/26/21 07:22 Dose: Not Given Documented by: Sodium Chloride (Normal Saline Advbag) Confirm Administered Dose 100 mls @ as directed .ROUTE .STK-MED ONE Stop: 02/25/21 14:24 Last Admin: 02/26/21 07:22 Dose: Not Given Documented by: Ampicillin Sodium 2 gm/ Sodium (Chloride) 100 mls @ 200 mls/hr IV ONETIME ONE Stop: 02/25/21 14:55 Last Admin: 02/25/21 14:26 Dose: 200 mls/hr Documented by: Morphine Sulfate (Morphine 2 Mg/Ml Syringe) Confirm Administered Dose 2 mg .ROUTE .STK-MED ONE Stop: 02/25/21 17:03 Last Admin: 02/26/21 07:21 Dose: Not Given Documented by: Morphine Sulfate (Morphine 2 Mg/Ml Syringe) 2 mg IVPUSH ONETIME ONE Stop: 02/25/21 17:03 Last Admin: 02/25/21 17:03 Dose: 2 mg Documented by: Nalbuphine HCl (Nalbuphine 10 Mg/1 Ml Vial) 10 mg IVPUSH Q1H PRN PRN Reason: Pain (severe 7-10) Last Admin: 02/25/21 15:52 Dose: 10 mg Documented by: - Infant Interaction Support Person: Significant Other - Recovery Exam Fundal Tone: Firm Fundal Level: At Umbilicus Fundal Placement: Midline Lochia Amount: Small Lochia Color: Rubra/Red Perineum Description: Intact, Minimal Bruising/Swelling Episiotomy/Laceration: None Bladder Status: Voiding Urinary Elimination: Voided - Exam General: Alert, Oriented Lungs: Normal Respiratory Effort Cardiovascular: Regular Rate, Regular Rhythm GI/Abdominal Exam: Soft, Non-Tender Extremities: Pedal Edema (trace). No: Miri's Sign Skin: Warm, Dry, Intact Neurological: No New Focal Deficit Psy/Mental Status: Alert, Normal Affect, Normal Mood - Problem List & Annotations (1) Vaginal delivery SNOMED Code(s): 104784242 Code(s): O80 - ENCOUNTER FOR FULL-TERM UNCOMPLICATED DELIVERY Status: Acute Current Visit: Yes - Problem List Review Problem List Initiated/Reviewed/Updated: Yes - My Orders Last 24 Hours: My Active Orders 02/27/21 08:25 Ready for Discharge [RC] PER UNIT ROUTINE - Assessment Assessment:: PPD2 s/p at 38w0d - Plan Plan:: Routine cares * Rh positive, rubella immune * GBS positive, received 1 dose IV ampicillin prior to delivery * PO pain medication PRN * Regular diet as tolerated * Encourage ambulation and fluid intake when able * , nursing assistance as needed Dispo: Patient ready to go home. Discharge to home. Pelvic rest for 6 weeks. Follow up at [facility] 4 weeks. Call with any concerns or questions.
== END 2021-02-27 16:50 | disposition home or self-care (01) | DRG 560 ==
LOC: MW.OBCHECK 13:43 → MW.OB 13:44 → MW.OBCHECK 14:02 → OBSVTOIN 16:59 → MW.OB 20:32
PROVIDERS: ADMIT Obstetrics & Gynecology; ATTEND Obstetrics & Gynecology
PROC: 10E0XZZ Delivery of Products of Conception, External Approach (ICD-10-PCS; principal; 2021-02-25)
PROC: 10907ZC Drainage of Amniotic Fluid, Therapeutic from Products of Conception, Via Natural or Artificial Opening (ICD-10-PCS; 2021-02-25)
DX: O99.824 Streptococcus B carrier state complicating childbirth (principal); Z3A.38 38 weeks gestation of pregnancy; Z37.0 Single live birth; Z20.822 Contact with and (suspected) exposure to COVID-19
CPT/HCPCS: 36415; 59025; 59409; 82803; 85014; 85018; 85027; 86592; 86850; 86900; 86901; A9270-GY; J0290; J2270; J2300; J2590; J7120; U0002